=== PATIENT | male | born 1960 | race African-American/Black ===

== ENCOUNTER 2016-09-29 20:35 | Emergency (ER) | payer BC ==
[~2016-09-29] VITALS: Ht 175.3 cm; Wt 95.9 kg
[~2016-09-29 20:35] MED LIST: AMLOPIDINE PO; AMOXICILLIN 50500 MG PO; ANXIETY MED; ASPIRIN E.C. 8181 MG PO; ATARAX25 MG PO; AUGMENTIN 875 M1 TAB PO; BIAXIN 500MG T500 MG PO; CATAPRES-TTS 30.3 MG TD; CATAPRES0.2 MG PO; COREG 25MG25 MG/TAB PO; COZAAR100 MG PO; CYCLOBENZAPRINE10 MG PO; EPIPEN 2-PAK1 MG/ML IM; HCTZ 25MG TAB25 MG PO; HCTZ 25MG25 MG PO; HCTZ PO; HYDRALAZINE HCL25 MG PO; K-DUR20 MEQ PO; LASIX 40MG TABL40 MG; LASIX 40MG TABL40 MG PO; LASIX 80MG TABL80 MG PO; LEVEMIR SQ; LIPITOR 10MG10 MG PO; LISINOPRIL PO; LORTAB 5/500 501 TAB PO; LORTAB 7.5/5001 TAB PO; NORCO 325 MG-51 TAB PO; NORVASC 10MG10 MG PO; NOVLOG SQ; POTASSIUM CH2 MEQ/ML PO; POTASSIUM CL 220 MEQ PO; PREDNISONE20 MG PO; PROTONIX 40MG T40 MG PO; TERAZOSIN PO; TESSALON PERLE200 MG PO; ZYLOPRIM 300MG300 MG PO; [UNRECOGNIZED DRUG - REMARK]; [UNRECOGNIZED DRUG - REMARK]
[2016-09-29 20:38] VITALS: TEMP 98.1
[2016-09-29 21:39] LABS: BASO % 0.5 % (0.0-2.0); EOS # 0.2 (0.0-0.7); EOS % 2.7 % (0-4.0); GRAN # 2.9 (1.4-6.5); GRAN % 52.2 % (42.2-75.2); HEMATOCRIT 41.9 % (42.0-52.0); HEMOGLOBIN 14.9 g/dl (13.5-18.0); LYMPH # 1.8 (1.2-3.4); LYMPH % 32.9 % (20.0-51.0); MEAN CELL VOLUME 84 fl (80.0-100.0); MEAN CORPUSCULAR HEMOGLOBIN 30 pg (27.0-31.0); MEAN CORPUSCULAR HGB CONC 36 g/dl (33.0-37.0); MEAN PLATELET VOLUME 10.8 fl (7.4-10.4); MONO # 0.6 (0.1-0.6); MONO % 11.3 % (1.7-9.3); PLATELET COUNT 207 K/mm3 (130-400); RED BLOOD COUNT 5.01 M/mm3 (4.20-5.60); REDCELL DISTRIBUTION WIDTH-CV 11.9 % (11.5-14.5); WHITE BLOOD COUNT 5.5 K/mm3 (4.8-10.8)
[2016-09-29 21:46] LABS: PH 7 (5-8); SQUAMOUS EPITHELIAL 0-2 /hpf; URINE APPEARANCE Clear; URINE BACTERIA None Seen /hpf; URINE BILIRUBIN Negative (NEGATIVE); URINE BLOOD Negative (NEGATIVE); URINE COLOR Yellow; URINE GLUCOSE Negative (NEGATIVE); URINE KETONE Negative (NEGATIVE); URINE RBC 0-2 /hpf; URINE UROBILINOGEN Negative (NEGATIVE); URINE WBC 0-2 /hpf
[2016-09-29 21:52] LABS: ADJUSTED CALCIUM 8.6 mg/dL (8.4-10.2); ALANINE AMINOTRANSFERASE 91 U/L (21-72); ALBUMIN 3.8 gm/dL (3.5-5.0); ALKALINE PHOSPHATASE 76 U/L (50-136); ANION GAP 14 mmol/L (7-16); BILIRUBIN,TOTAL 0.8 mg/dL (0.0-1.0); BLOOD UREA NITROGEN 14 mg/dL (9-20); CALCIUM 8.4 mg/dL (8.4-10.2); CARBON DIOXIDE 31 mmol/L (22-30); CHLORIDE 96 mmol/L (98-107); CREATININE, serum 1.09 mg/dL (0.66-1.25); GLUCOSE 114 mg/dL (74-106); SODIUM 141 mmol/L (137-145); TOTAL PROTEIN 7.1 gm/dL (6.4-8.2)
[2016-09-29 21:55] LABS: C-REACTIVE PROTEIN < 0.5 mg/dL (0.0-0.9); POTASSIUM 2.7 mmol/L (3.4-5.0)
[2016-09-29] MEDS ORDERED: FLOMAX 0.40.4 MG/CAP PO (23:56)
[2016-09-30 00:25] VITALS: BP 159/108; PULSE 72
== END 2016-09-30 00:28 | disposition home or self-care (01) ==
LOC: COL.ER 20:35
PROVIDERS: Emergency Medicine
DX: I10 Essential (primary) hypertension (principal); R10.32 Left lower quadrant pain; N40.1 Benign prostatic hyperplasia with lower urinary tract symptoms; R39.11 Hesitancy of micturition; T46.5X6A Underdosing of other antihypertensive drugs, initial encounter; Z91.138 Patient's unintentional underdosing of medication regimen for other reason; E11.9 Type 2 diabetes mellitus without complications; Z79.4 Long term (current) use of insulin
CPT/HCPCS: J2765; J3010; J7030; Q9967

== ENCOUNTER → 2016-10-13 | Outpatient (CLI) | payer BC ==
[~2016-10-13] MED LIST changes: +FLOMAX 0.40.4 MG/CAP PO; +MAG-OX 400400 MG/TAB PO
== END ==
LOC: COL.RAD 11:00
DX: N50.812 Left testicular pain (principal)

== ENCOUNTER 2017-04-08 19:17 | Inpatient (IN) | payer BC, OTHER ==
[~2017-04-08] VITALS: Ht 175.3 cm; Wt 91.1 kg
[~2017-04-08 19:17] MED LIST changes: -MAG-OX 400400 MG/TAB PO
[2017-04-08 21:02] LABS: BASO % 0.3 % (0.0-2.0); EOS # 0.2 (0.0-0.7); EOS % 1.9 % (0-4.0); GRAN # 5.7 (1.4-6.5); GRAN % 59.5 % (42.2-75.2); LYMPH % 31.7 % (20.0-51.0); MEAN CELL VOLUME 84 fl (80.0-100.0); MEAN CORPUSCULAR HGB CONC 36 g/dl (33.0-37.0); MEAN PLATELET VOLUME 10.3 fl (7.4-10.4); MONO # 0.6 (0.1-0.6); MONO % 6.3 % (1.7-9.3); PLATELET COUNT 277 K/mm3 (130-400); RED BLOOD COUNT 6.29 M/mm3 (4.20-5.60); REDCELL DISTRIBUTION WIDTH-CV 12.1 % (11.5-14.5)
[2017-04-08 21:03] LABS: MEAN CORPUSCULAR HEMOGLOBIN 30 pg (27.0-31.0)
[2017-04-08 21:41] LABS: BILIRUBIN,TOTAL 0.9 mg/dL (0.0-1.0); CALCIUM 8.3 mg/dL (8.4-10.2); CREATININE, serum 1.19 mg/dL (0.66-1.25); TOTAL PROTEIN 7.2 gm/dL (6.4-8.2)
[2017-04-08 21:44] LABS: POTASSIUM 2.3 mmol/L (3.4-5.0)
[2017-04-08 21:52] LABS: TROPONIN-I 0.017 ng/mL (0.000-0.034)
[2017-04-09 00:56] LABS: MAGNESIUM 1.5 mg/dL (1.6-2.3); PHOSPHOROUS 3.6 mg/dL (2.5-4.5)
--- NOTE | 2017-04-09 01:25 | NUR ---
Pt arrived to floor from ED; c/o being extremely hungry; food provided. Denies itching or nausea. Alert/orientedx3; pt oriented to room. Fluids infusing to right ac. Call light within reach.
--- NOTE | 2017-04-09 01:56 | NUR ---
Report given to JASON Corona who will take over care for pt. Pt resting quietly at this time with no complaints. Fluids infusing to right ac. Tele on. Call light within reach.
[2017-04-09 02:29] VITALS: BP 180/112; PULSE 103; TEMP 98.1
[2017-04-09 04:45] VITALS: BP 149/96; PULSE 85; TEMP 97.7
--- NOTE | 2017-04-09 06:15 | NUR ---
Patient has been sleeping/resting well through the night, vital signs have been stable, he has been hypertensive but asymptomatic, he has denied having any additional concerns, currently he is resting calmly in bed, call light is in reach, will continue to monitor.
[2017-04-09 06:52] LABS: HEMATOCRIT 42.1 % (42.0-52.0); MEAN CELL VOLUME 85 fl (80.0-100.0); MEAN CORPUSCULAR HEMOGLOBIN 30 pg (27.0-31.0); MEAN CORPUSCULAR HGB CONC 35 g/dl (33.0-37.0); MEAN PLATELET VOLUME 10.8 fl (7.4-10.4); PLATELET COUNT 227 K/mm3 (130-400); RED BLOOD COUNT 4.94 M/mm3 (4.20-5.60); REDCELL DISTRIBUTION WIDTH-CV 12.2 % (11.5-14.5)
[2017-04-09 06:55] LABS: HEMOGLOBIN 14.9 g/dl (13.5-18.0)
[2017-04-09 07:09] LABS: CALCIUM 7.8 mg/dL (8.4-10.2); CREATININE, serum 1.02 mg/dL (0.66-1.25); POTASSIUM 3.6 mmol/L (3.4-5.0)
[2017-04-09 08:07] VITALS: BP 155/94; PULSE 85; TEMP 97.9
--- NOTE | 2017-04-09 09:30 | NUR ---
Patient sleeping when arrived to the room. Patient awakens when spoken loudly to by this nurse. Verbalizes achiness/stiffness in hamd joints. Questioned about medication compliance at home. He does not answer. Patient took AM medicaitons without difficulty. No other needs at this time
[2017-04-09 11:35] VITALS: BP 154/94; PULSE 78; TEMP 97.8
[2017-04-09 15:15] VITALS: BP 135/91; PULSE 80; TEMP 97.9
--- NOTE | 2017-04-09 15:35 | NUR ---
SW and SW student met with patient to review discharge plan. Patient appeared agitated and anxious to return home. Patient reports independence with ADLs and uses no DME. Patient to return home upon discharge. No anticipated needs.
--- NOTE | 2017-04-09 15:43 | NUR ---
Called to patients room. Patient states that he doesnt understand why he hasnt been discharged to home yet. "That doctor last night told me I only had to stay one day to get my electrolytes fixed" Explained to patient that Dr. Gonzalez was going to keep him for another day. Patient is not understanding of this. When explained to patient that Dr. Gonzalez is very concerned about his home medications and if he takes them as ordered. Such as insulin. Patient states "I dont need that stuff. They tried to send me home with it last time and I know im not diabetic. I just eat a lot of candy." Patient then c/o right hand swelling. Explained to patient since his IV was in that arm it could cause swelling in his hand. Offered to change IV site for patient. Patient states "I want another nurse" JASON Lopez, charge nurse made aware
[2017-04-09] MEDS ORDERED: MAG-OX 400400 MG/TAB PO (16:07)
--- NOTE | 2017-04-09 16:14 | NUR ---
Jessica RN went to see patient. Offered to restart IV and give something for pain. Patient is c/o pain to Jessica in his right neck area. Patient told her that it could be muscular but also may be heart burn. While other nurse was addressing pain medication; the patient called this nurse back to room. Patient wants to know where that paper that he needed to sign is; so he can go home (AMA). Jessica took down Tyenol and Maalox to patient. Patient refused both medications and PM Heparin. Dr. Gonzalez came back to see patient. Patient will be discharged to home.
--- NOTE | 2017-04-09 17:35 | NUR ---
Discharge instructions reviewed with patient. Reviewed home medications. Explained to patient that he needed to be sure to take his home medications. Also reviewed with patient if he does not have home blood pressure medications than to call the floor and we would get scripts sent to his pharmacy. Patient reports that he is understanding. Gave patient follow up appointment information; education; lab draws needed and home medications. INT discontinued and patient discharged at this time. No further questions
[2017-12-16] MEDS ORDERED: ZYLOPRIM 300MG300 MG PO (21:55)
[2017-12-16] MEDS ORDERED: NAPROSYN500 MG PO (21:56)
[2017-12-16] MEDS ORDERED: TOPROL XL 50MG50 MG PO (21:56)
[2017-12-19] MEDS ORDERED: ASPIRIN 32325 MG/TAB PO (11:35)
[2017-12-19] MEDS ORDERED: NORVASC 10MG10 MG PO (11:35)
[2017-12-19] MEDS ORDERED: TOPROL XL100 MG PO (11:35)
[2017-12-19] MEDS ORDERED: ANTIVERT 25MG25 MG PO (11:36)
[2017-12-19] MEDS ORDERED: HCTZ12.5TAB PO (11:36)
[2017-12-19] MEDS ORDERED: ZOFRAN 4MG T4 MG/TAB PO (11:36)
[2017-12-19] MEDS ORDERED: K-TAB20 PO ×2 (11:40)
[2019-03-22] MEDS ORDERED: MOBIC15 MG PO (18:45)
== END 2017-04-09 17:35 | disposition home or self-care (01) | DRG 305 ==
LOC: COL.ER 19:17 → MEDICAL 04-09 00:26
PROVIDERS: Emergency Medicine
DX: I10 Essential (primary) hypertension (principal); Z91.14 Patient's other noncompliance with medication regimen; E87.6 Hypokalemia; D75.1 Secondary polycythemia; F17.210 Nicotine dependence, cigarettes, uncomplicated; E83.42 Hypomagnesemia; R11.2 Nausea with vomiting, unspecified; R73.9 Hyperglycemia, unspecified; Z86.73 Personal history of transient ischemic attack (TIA), and cerebral infarction without residual deficits
CPT/HCPCS: 99223-AI; J1644; J1815; J2405; J3475; J3480; J7030; J7512

== ENCOUNTER 2018-04-26 08:15 | Emergency (ER) | payer OTHER ==
[~2018-04-26] VITALS: Ht 175.3 cm; Wt 94.1 kg
[~2018-04-26 08:15] MED LIST changes: +ANTIVERT 25MG25 MG PO; +ASPIRIN 32325 MG/TAB PO; +HCTZ12.5TAB PO; +K-TAB20 PO; +MAG-OX 400400 MG/TAB PO; +NAPROSYN500 MG PO; +TOPROL XL 50MG50 MG PO; +TOPROL XL100 MG PO; +ZOFRAN 4MG T4 MG/TAB PO
[2018-04-26] MEDS ORDERED: TOPROL XL100 MG PO ×2 (08:35)
[2018-04-26] MEDS ORDERED: HCTZ12.5TAB PO (08:35)
[2018-04-26] MEDS ORDERED: NORVASC 10MG10 MG PO (08:35)
[2018-04-26] MEDS ORDERED: AMOXICILLIN 50500 MG PO ×2 (08:35)
[2018-04-26] MEDS ORDERED: ZYRTEC 10MG10 MG PO (08:36)
[2018-04-26 09:12] VITALS: BP 181/118; PULSE 82; TEMP 98.6
== END 2018-04-26 09:12 | disposition home or self-care (01) ==
LOC: COL.ER 08:15
DX: J02.9 Acute pharyngitis, unspecified (principal); H66.92 Otitis media, unspecified, left ear; I10 Essential (primary) hypertension; Z79.82 Long term (current) use of aspirin; Z86.73 Personal history of transient ischemic attack (TIA), and cerebral infarction without residual deficits

== ENCOUNTER 2018-04-27 11:23 | Observation (INO) | payer OTHER ==
[~2018-04-27] VITALS: Ht 175.3 cm; Wt 86.8 kg
[~2018-04-27 11:23] MED LIST changes: +ZYRTEC 10MG10 MG PO
[2018-04-27 12:08] LABS: BASO # 0.1 (0.0-0.2); BASO % 0.6 % (0.0-2.0); EOS # 0.2 (0.0-0.7); EOS % 1.8 % (0-4.0); GRAN # 5.1 (1.4-6.5); GRAN % 62.3 % (42.2-75.2); HEMATOCRIT 44.2 % (42.0-52.0); HEMOGLOBIN 15.3 g/dl (13.5-18.0); LYMPH # 1.9 (1.2-3.4); LYMPH % 23.3 % (20.0-51.0); MEAN CELL VOLUME 86 fl (80.0-100.0); MEAN CORPUSCULAR HEMOGLOBIN 30 pg (27.0-31.0); MEAN CORPUSCULAR HGB CONC 35 g/dl (33.0-37.0); MEAN PLATELET VOLUME 10.5 fl (7.4-10.4); MONO % 11.5 % (1.7-9.3); PLATELET COUNT 198 K/mm3 (130-400); RED BLOOD COUNT 5.14 M/mm3 (4.20-5.60); REDCELL DISTRIBUTION WIDTH-CV 11.4 % (11.5-14.5)
[2018-04-27 12:16] LABS: PARTIAL THROMBOPLASTIN TIME 33.5 SECONDS (26.0-37.0)
[2018-04-27 12:17] LABS: INR 1.2 (0.8-3.0); PROTHROMBIN TIME 13.5 SECONDS (9.7-12.8)
[2018-04-27 12:47] LABS: ALBUMIN 3.9 gm/dL (3.5-5.0); C-REACTIVE PROTEIN 1.7 mg/dL (0.0-0.9); CALCIUM 8.5 mg/dL (8.4-10.2); CREATININE, serum 1.53 mg/dL (0.66-1.25); TOTAL PROTEIN 7.4 gm/dL (6.4-8.2)
[2018-04-27 12:48] LABS: POTASSIUM 2.5 mmol/L (3.4-5.0)
[2018-04-27 15:46] VITALS: BP 154/111; PULSE 79; TEMP 99.1
[2018-04-27 15:56] LABS: MAGNESIUM 1.4 mg/dL (1.6-2.3)
[2018-04-27 16:02] LABS: TROPONIN-I 3 HR POST INITIAL 0.068 ng/mL (0.000-0.034)
[2018-04-27 17:36] VITALS: BP 139/93
[2018-04-27 19:26] VITALS: BP 141/93; PULSE 73; TEMP 98.5
[2018-04-27 20:27] VITALS: BP 143/93; PULSE 73; TEMP 98
[2018-04-28] VITALS (10 sets, daily range): BP systolic 144–172; BP diastolic 52–112; PULSE 71–89; TEMP 98.2–98.6
[2018-04-28 08:03] LABS: CALCIUM 8.3 mg/dL (8.4-10.2); CHOLESTEROL RISK RATIO 3.7; CREATININE, serum 1.03 mg/dL (0.66-1.25)
[2018-04-28 08:10] LABS: POTASSIUM 2.6 mmol/L (3.4-5.0)
[2018-04-28 08:32] LABS: TROPONIN-I 0.048 ng/mL (0.000-0.034)
[2018-04-28] MEDS ORDERED: MAG-OX 400400 MG/TAB PO (16:11)
[2018-04-28] MEDS ORDERED: TOPROL XL100 MG PO (16:11)
[2018-04-28] MEDS ORDERED: K-TAB20 PO (16:12)
[2018-04-28] MEDS ORDERED: LIPITOR20 MG PO (16:13)
== END 2018-04-28 18:15 | disposition home or self-care (01) ==
LOC: COL.ER 11:23 → MEDICAL 13:30
PROVIDERS: Physician Assistant
DX: R07.89 Other chest pain (principal); N17.9 Acute kidney failure, unspecified; I10 Essential (primary) hypertension; N40.0 Benign prostatic hyperplasia without lower urinary tract symptoms; E87.6 Hypokalemia; M10.9 Gout, unspecified; K29.70 Gastritis, unspecified, without bleeding; I25.2 Old myocardial infarction; E78.00 Pure hypercholesterolemia, unspecified; Z79.82 Long term (current) use of aspirin; E78.5 Hyperlipidemia, unspecified; Z86.73 Personal history of transient ischemic attack (TIA), and cerebral infarction without residual deficits; Z90.49 Acquired absence of other specified parts of digestive tract; Z91.018 Allergy to other foods
CPT/HCPCS: A9502; G0378; J1644; J3475; J3480; J7030

== ENCOUNTER 2018-05-02 09:51 | Emergency (ER) | payer OTHER ==
[~2018-05-02] VITALS: Ht 175.3 cm; Wt 96.4 kg
[~2018-05-02 09:51] MED LIST changes: +LIPITOR20 MG PO
[2018-05-02 09:52] VITALS: TEMP 97.9
[2018-05-02 10:30] LABS: BASO % 0.8 % (0.0-2.0); EOS # 0.2 (0.0-0.7); EOS % 4.3 % (0-4.0); GRAN # 2.4 (1.4-6.5); GRAN % 45.7 % (42.2-75.2); HEMOGLOBIN 15.5 g/dl (13.5-18.0); LYMPH % 39.3 % (20.0-51.0); MEAN CELL VOLUME 86 fl (80.0-100.0); MEAN CORPUSCULAR HEMOGLOBIN 30 pg (27.0-31.0); MEAN CORPUSCULAR HGB CONC 35 g/dl (33.0-37.0); MEAN PLATELET VOLUME 10.5 fl (7.4-10.4); MONO # 0.5 (0.1-0.6); MONO % 9.5 % (1.7-9.3); PLATELET COUNT 285 K/mm3 (130-400); RED BLOOD COUNT 5.14 M/mm3 (4.20-5.60); REDCELL DISTRIBUTION WIDTH-CV 11.2 % (11.5-14.5)
[2018-05-02 10:34] LABS: ALBUMIN 3.8 gm/dL (3.5-5.0); BILIRUBIN,TOTAL 0.4 mg/dL (0.0-1.0); CALCIUM 8.8 mg/dL (8.4-10.2); CREATININE, serum 1.22 mg/dL (0.66-1.25); POTASSIUM 3.4 mmol/L (3.4-5.0); TOTAL PROTEIN 7.7 gm/dL (6.4-8.2)
[2018-05-02 10:46] LABS: TROPONIN-I 0.034 ng/mL (0.000-0.034)
[2018-05-02 11:41] VITALS: BP 181/112; PULSE 66
== END 2018-05-02 11:41 | disposition home or self-care (01) ==
LOC: COL.ER 09:51
PROVIDERS: Emergency Medicine
DX: I10 Essential (primary) hypertension (principal); E78.5 Hyperlipidemia, unspecified; E87.6 Hypokalemia; Z86.73 Personal history of transient ischemic attack (TIA), and cerebral infarction without residual deficits; Z87.448 Personal history of other diseases of urinary system; Z79.82 Long term (current) use of aspirin

== ENCOUNTER 2018-06-27 09:01 | Emergency (ER) | payer OTHER ==
[~2018-06-27] VITALS: Ht 175.3 cm; Wt 93.2 kg
[2018-06-27 09:05] VITALS: TEMP 98
[2018-06-27 09:24] LABS: BASO % 0.8 % (0.0-2.0); EOS # 0.1 (0.0-0.7); EOS % 2.5 % (0-4.0); GRAN # 2.6 (1.4-6.5); GRAN % 49.5 % (42.2-75.2); HEMATOCRIT 41.3 % (42.0-52.0); HEMOGLOBIN 14.1 g/dl (13.5-18.0); LYMPH # 1.9 (1.2-3.4); LYMPH % 37.7 % (20.0-51.0); MEAN CELL VOLUME 85 fl (80.0-100.0); MEAN CORPUSCULAR HEMOGLOBIN 29 pg (27.0-31.0); MEAN CORPUSCULAR HGB CONC 34 g/dl (33.0-37.0); MEAN PLATELET VOLUME 9.8 fl (7.4-10.4); MONO # 0.5 (0.1-0.6); MONO % 9.1 % (1.7-9.3); PLATELET COUNT 260 K/mm3 (130-400); RED BLOOD COUNT 4.87 M/mm3 (4.20-5.60)
[2018-06-27 09:33] LABS: ALBUMIN 3.5 gm/dL (3.5-5.0); BILIRUBIN,TOTAL 0.5 mg/dL (0.0-1.0); CALCIUM 8.7 mg/dL (8.4-10.2); CREATININE, serum 0.95 mg/dL (0.66-1.25); TOTAL PROTEIN 6.9 gm/dL (6.4-8.2)
[2018-06-27 09:42] LABS: POTASSIUM 2.8 mmol/L (3.4-5.0)
[2018-06-27 09:46] LABS: TROPONIN-I 0.04 ng/mL (0.000-0.034)
[2018-06-27 10:35] LABS: COLLECTION METHOD CLEAN CATCH
[2018-06-27 10:46] LABS: MUCOUS Present /lpf; PH 7 (5-8); SQUAMOUS EPITHELIAL None Seen /hpf; URINE APPEARANCE Clear; URINE BACTERIA None Seen /hpf; URINE BILIRUBIN Negative (NEGATIVE); URINE BLOOD Negative (NEGATIVE); URINE COLOR Yellow; URINE GLUCOSE Negative (NEGATIVE); URINE KETONE Negative (NEGATIVE); URINE LEUKOCYTE ESTERASE Negative (NEGATIVE); URINE NITRATE Negative (NEGATIVE); URINE PROTEIN(semi-quant) 2+ (NEGATIVE); URINE RBC 0-2 /hpf; URINE UROBILINOGEN Negative (NEGATIVE); URINE WBC 0-2 /hpf
[2018-06-27] MEDS ORDERED: FLOMAX 0.40.4 MG/CAP PO (13:30)
[2018-06-27] MEDS ORDERED: HCTZ12.5TAB PO (13:30)
[2018-06-27] MEDS ORDERED: K-DUR20 MEQ PO (13:30)
[2018-06-27] MEDS ORDERED: LIPITOR20 MG PO (13:30)
[2018-06-27] MEDS ORDERED: NORVASC 10MG10 MG PO (13:30)
[2018-06-27] MEDS ORDERED: TOPROL XL100 MG PO (13:30)
[2018-06-27 13:40] VITALS: BP 178/111; PULSE 66
== END 2018-06-27 13:44 | disposition home or self-care (01) ==
LOC: COL.ER 09:01
PROVIDERS: Emergency Medicine
DX: I10 Essential (primary) hypertension (principal); R79.89 Other specified abnormal findings of blood chemistry; E78.5 Hyperlipidemia, unspecified; E87.6 Hypokalemia; M10.9 Gout, unspecified; Z87.891 Personal history of nicotine dependence; Z90.49 Acquired absence of other specified parts of digestive tract; Z86.73 Personal history of transient ischemic attack (TIA), and cerebral infarction without residual deficits
CPT/HCPCS: J3480

== ENCOUNTER → 2019-05-04 | Outpatient (CLI) | payer SELFPAY ==
[~2019-05-04] MED LIST changes: +MOBIC15 MG PO
[2019-05-04 16:58] LABS: HEMATOCRIT 39.6 % (42.0-52.0); HEMOGLOBIN 13.4 g/dl (13.5-18.0); MEAN CELL VOLUME 85 fl (80.0-100.0); MEAN CORPUSCULAR HEMOGLOBIN 29 pg (27.0-31.0); MEAN CORPUSCULAR HGB CONC 34 g/dl (33.0-37.0); MEAN PLATELET VOLUME 9.4 fl (7.4-10.4); PLATELET COUNT 313 K/mm3 (130-400); RED BLOOD COUNT 4.65 M/mm3 (4.20-5.60); REDCELL DISTRIBUTION WIDTH-CV 12.1 % (11.5-14.5)
[2019-05-04 17:07] LABS: ALBUMIN 4.2 gm/dL (3.5-5.0); BILIRUBIN,TOTAL 0.4 mg/dL (0.0-1.0); CHOLESTEROL RISK RATIO 4.4; CREATININE, serum 1.27 (0.66-1.25); POTASSIUM 3.1 mmol/L (3.4-5.0); TOTAL PROTEIN 7.8 gm/dL (6.4-8.2)
== END ==
LOC: COL.RAD 15:59 → COL.LAB 15:59
PROVIDERS: Family Medicine
DX: Z01.812 Encounter for preprocedural laboratory examination (principal); R05 Cough

== ENCOUNTER → 2019-06-23 | Outpatient (CLI) | payer OTHER | LOC: COL.PUL 08:00 → COL.RAD 08:20 | DX: Z02.71 Encounter for disability determination (principal); M47.816 Spondylosis without myelopathy or radiculopathy, lumbar region; M25.551 Pain in right hip; M16.11 Unilateral primary osteoarthritis, right hip ==

== ENCOUNTER → 2019-08-24 | Outpatient (CLI) | payer OTHER | LOC: ZLAB.FHCC 15:54 | DX: Z01.89 Encounter for other specified special examinations (principal) ==

== ENCOUNTER → 2019-09-27 | Outpatient (CLI) | payer SELFPAY ==
[2019-09-27 10:01] LABS: COLLECTION METHOD CLEAN CATCH
[2019-09-27 10:09] LABS: HEMATOCRIT 44.6 % (42.0-52.0); HEMOGLOBIN 14.5 g/dl (13.5-18.0); MEAN CELL VOLUME 88 fl (80.0-100.0); MEAN CORPUSCULAR HEMOGLOBIN 29 pg (27.0-31.0); MEAN CORPUSCULAR HGB CONC 33 g/dl (33.0-37.0); MEAN PLATELET VOLUME 10.1 fl (7.4-10.4); PLATELET COUNT 242 K/mm3 (130-400); RED BLOOD COUNT 5.05 M/mm3 (4.20-5.60); REDCELL DISTRIBUTION WIDTH-CV 12.8 % (11.5-14.5)
[2019-09-27 10:11] LABS: PH 6 (5-8); SQUAMOUS EPITHELIAL 0-2 /hpf; URINE APPEARANCE Clear; URINE BACTERIA None Seen /hpf; URINE BILIRUBIN Negative (NEGATIVE); URINE BLOOD Negative (NEGATIVE); URINE COLOR Yellow; URINE GLUCOSE Negative (NEGATIVE); URINE KETONE Negative (NEGATIVE); URINE LEUKOCYTE ESTERASE Negative (NEGATIVE); URINE NITRATE Negative (NEGATIVE); URINE PROTEIN(semi-quant) 2+ (NEGATIVE); URINE RBC 0-2 /hpf; URINE UROBILINOGEN Negative (NEGATIVE); URINE WBC 0-2 /hpf
== END ==
LOC: COL.LAB 09:09
DX: M19.041 Primary osteoarthritis, right hand (principal)

== ENCOUNTER 2019-10-12 12:42 | Emergency (ER) | payer SELFPAY ==
[~2019-10-12] VITALS: Ht 175.3 cm; Wt 79.5 kg
[2019-10-12 13:06] VITALS: TEMP 98.3
[2019-10-12] MEDS ORDERED: CEPHALEXIN500 M1 PO (13:48)
[2019-10-12 14:35] VITALS: PULSE 56
[2019-10-12 15:01] VITALS: BP 171/109
== END 2019-10-12 15:02 | disposition home or self-care (01) ==
LOC: COL.ER 12:42
DX: T23.201A Burn of second degree of right hand, unspecified site, initial encounter (principal); T31.0 Burns involving less than 10% of body surface; I10 Essential (primary) hypertension; Z79.82 Long term (current) use of aspirin; Z23 Encounter for immunization; X10.2XXA Contact with fats and cooking oils, initial encounter

== ENCOUNTER → 2019-10-26 | Outpatient (CLI) | payer SELFPAY ==
[~2019-10-26] MED LIST changes: +CEPHALEXIN500 M1 PO
[2019-10-26 17:55] LABS: ALBUMIN 3.6 gm/dL (3.5-5.0); BILIRUBIN,TOTAL 0.5 mg/dL (0.0-1.0); C-REACTIVE PROTEIN 1.6 mg/dL (0.0-0.9); CALCIUM 8.5 mg/dL (8.4-10.2); CREATININE, serum 1.61 (0.66-1.25); POTASSIUM 3.2 mmol/L (3.4-5.0); TOTAL PROTEIN 6.8 gm/dL (6.4-8.2)
[2019-10-26 18:23] LABS: THYROID STIMULATING HORMONE 1.45 uIU/mL (0.465-4.680)
== END ==
LOC: ZLAB.FHCC 17:04
DX: Z01.89 Encounter for other specified special examinations (principal)

== ENCOUNTER → 2019-11-24 | Outpatient (CLI) | payer SELFPAY | LOC: COL.LAB 11:36 | DX: B19.20 Unspecified viral hepatitis C without hepatic coma (principal) ==

== ENCOUNTER 2019-12-27 19:48 | Inpatient (IN) | payer SELFPAY ==
[~2019-12-27] VITALS: Ht 175.3 cm; Wt 84.2 kg
[2019-12-27 20:50] LABS: BASO % 0.3 % (0.0-2.0); EOS # 0.2 (0.0-0.7); EOS % 2.7 % (0-4.0); GRAN % 59.1 % (42.2-75.2); HEMATOCRIT 39.3 % (42.0-52.0); HEMOGLOBIN 13.1 g/dl (13.5-18.0); LYMPH # 1.9 (1.2-3.4); LYMPH % 27.9 % (20.0-51.0); MEAN CELL VOLUME 86 fl (80.0-100.0); MEAN CORPUSCULAR HEMOGLOBIN 29 pg (27.0-31.0); MEAN CORPUSCULAR HGB CONC 33 g/dl (33.0-37.0); MEAN PLATELET VOLUME 10.1 fl (7.4-10.4); MONO # 0.7 (0.1-0.6); MONO % 9.7 % (1.7-9.3); PLATELET COUNT 246 K/mm3 (130-400); RED BLOOD COUNT 4.59 M/mm3 (4.20-5.60); REDCELL DISTRIBUTION WIDTH-CV 12.3 % (11.5-14.5)
[2019-12-27 20:52] LABS: INR 1.2 (0.8-3.0); PROTHROMBIN TIME 13.4 SECONDS (9.7-12.8)
[2019-12-27 20:55] LABS: ALBUMIN 3.5 gm/dL (3.5-5.0); BILIRUBIN,TOTAL 0.5 mg/dL (0.0-1.0); CALCIUM 8.1 mg/dL (8.4-10.2); CREATININE, serum 1.14 (0.66-1.25); MAGNESIUM 1.8 mg/dL (1.6-2.3); PARTIAL THROMBOPLASTIN TIME 35.3 SECONDS (26.0-37.0); TOTAL PROTEIN 6.9 gm/dL (6.4-8.2)
[2019-12-27 21:06] LABS: TROPONIN-I 0.015 ng/mL (0.000-0.035)
[2019-12-27 21:29] LABS: COLLECTION METHOD CLEAN CATCH
[2019-12-27 21:40] LABS: AMORPHOUS CRYSTAL Present /uL; BUDDING YEAST Present /hpf; PH 7 (5-8); SQUAMOUS EPITHELIAL None Seen /hpf; URINE APPEARANCE Hazy; URINE BACTERIA Moderate /hpf; URINE BILIRUBIN Negative (NEGATIVE); URINE BLOOD Negative (NEGATIVE); URINE COLOR Yellow; URINE GLUCOSE Negative (NEGATIVE); URINE KETONE Negative (NEGATIVE); URINE LEUKOCYTE ESTERASE 2+ (NEGATIVE); URINE NITRATE Negative (NEGATIVE); URINE PROTEIN(semi-quant) 1+ (NEGATIVE); URINE RBC 0-2 /hpf
[2019-12-28] VITALS (776 sets, daily range): BP systolic 138–185; BP diastolic 73–102; PULSE 65–88; TEMP 97–99.7; O2SAT 83–100
--- NOTE | 2019-12-28 01:55 | NUR ---
Called regarding positive result of gonnohrea. He gave a verbal phone order for 1 more gram of rocephin IV to be given.
--- NOTE | 2019-12-28 07:00 | NUR ---
Report recieved from Josue GOMEZ. Medications and lines verified, patient in bed with eyes closed and snoring respirations. Call light at side.
[2019-12-28 08:05] LABS: BILIRUBIN,TOTAL 0.5 mg/dL (0.0-1.0); CALCIUM 8.6 mg/dL (8.4-10.2); CREATININE, serum 1.04 (0.66-1.25); MAGNESIUM 1.7 mg/dL (1.6-2.3); TOTAL PROTEIN 7.9 gm/dL (6.4-8.2)
[2019-12-28 08:22] LABS: BASO % 0.2 % (0.0-2.0); EOS # 0.1 (0.0-0.7); EOS % 1.3 % (0-4.0); GRAN # 7.6 (1.4-6.5); GRAN % 77.4 % (42.2-75.2); HEMATOCRIT 44.4 % (42.0-52.0); HEMOGLOBIN 14.8 g/dl (13.5-18.0); LYMPH # 1.4 (1.2-3.4); MEAN CELL VOLUME 86 fl (80.0-100.0); MEAN CORPUSCULAR HEMOGLOBIN 29 pg (27.0-31.0); MEAN CORPUSCULAR HGB CONC 33 g/dl (33.0-37.0); MONO # 0.7 (0.1-0.6); MONO % 6.8 % (1.7-9.3); PLATELET COUNT 238 K/mm3 (130-400); RED BLOOD COUNT 5.18 M/mm3 (4.20-5.60); REDCELL DISTRIBUTION WIDTH-CV 12.3 % (11.5-14.5)
--- NOTE | 2019-12-28 10:26 | NUR ---
SW met with the patient to discuss discharge plan. The patient lives in [place] with his daughter, Juana (ph#[phone]). He reports needing occasional assistance with ADLs and has a cane. He states that if he needs assistance getting to the restroom or bathing, then he uses his cane. The patient receives primary care at the [facility] and he receives his medications at [facility]. He reports difficulties affording his meds. He states that he has utilized [employer] for prescription assistance. SW also discussed GoodRx. The patient verbalized understanding and reports that he has heard of this. The patient is self pay. SW consulted Financial Counselor, Dequan. The patient does not have advanced directives completed and he was not interested in completing them at this time. He states that he has three children: Juana, Jennifer (ph#[phone]), and Jakub. The patient plans to return home with his daughter upon discharge. SW to continue to follow for possible med assistance.
--- NOTE | 2019-12-28 15:16 | NUR ---
report called to Joan GOMEZ.
--- NOTE | 2019-12-28 18:31 | NUR ---
Patient transferred from ICU to floor at 1530. Is alert and independent. Lungs clear, heart is regular, abdomen is soft and nontender with bowel sounds active x4. No edema is noted. Is denying pain, states feeling a little chilly. Heater turned up for patient. Call light and personal items are within reach.
--- NOTE | 2019-12-28 18:45 | NUR ---
Report given to oncoming shift. No needs identified. Call light and personal items are within reach.
--- NOTE | 2019-12-28 19:00 | NUR ---
Received patient from [facility]. Seen patient awake, lying on bed. Denies any pain. With INT on left AC. Will continueto monitor.
--- NOTE | 2019-12-28 21:39 | NUR ---
Patient complains of pain on his shoulders with pain score of 6/10. He said he has arthritis. Blood pressure rechecked and still high, 178/99. This nurse called Dr. Mahmood and he ordered [place] tablet PRN. Will recheck blood pressure again once pain has lessen.
[2019-12-29] VITALS (10 sets, daily range): BP systolic 158–191; BP diastolic 78–109; PULSE 67–97; TEMP 98.2–99.3
--- NOTE | 2019-12-29 00:10 | NUR ---
Last dose of potassium replacement given. This nurse asked patient of his pain on the shoulders and said that it was 4/10 and it was much better already.
--- NOTE | 2019-12-29 00:40 | NUR ---
Patient called saying he has pain again on his shoulder and pain score is 6/10. He is asking for pain medicine. Navarre is not due yet but he has Morphine. When this nurse is about to give the Morphine he refuses saying he likes Navarre because that's what he takes at home. This nurse informed him that he's not due yet and next dose would be at around 3:30am. He agreed to wait for the Navarre later.
--- NOTE | 2019-12-29 04:08 | NUR ---
Patient complains of shoulder pain, 03/18. Troy PRN given. Blood pressure is high as well. Hydralazine PRN given. Will recheck blood pressure after an hour.
--- NOTE | 2019-12-29 06:32 | NUR ---
Blood pressure was rechecked. Latest BP is 161/98. Patient still with complains of mild pain on his shoulder. Will endorse to day shift nurse.
[2019-12-29 07:35] LABS: CALCIUM 8.3 mg/dL (8.4-10.2); CREATININE, serum 0.91 (0.66-1.25); MAGNESIUM 1.7 mg/dL (1.6-2.3); POTASSIUM 3.2 mmol/L (3.4-5.0)
--- NOTE | 2019-12-29 08:00 | NUR ---
PATIENT IS ORIENTED BUT DROWSY. PATIENT HAS A VERY FLAT AFFECT AND RARLY SPEAKS. PATIENT WILL ANSWER WHEN DIRECTLY ASKED A QUESTION. NOTED ELEVATED B/P. PATIENT GIVEN SEVERAL MEDICATIONS FOR B/P. PATIENT CURRENTLY REPORTS PAIN IS MANAGED WITH NORCO. PATIENT CURRENTLY DENIES CHEST PAIN OR SOA. HEAD TO TOE ASSESSMENT COMPLETE. PATIENT ON POTASSIUM PROTOCOL, SEE REPLACEMENT ORDERS. NO C/O N/V. AHA DIET. AM MEDS GIVEN. NO OTHER NEEDS.
--- NOTE | 2019-12-29 12:00 | NUR ---
PATIENT GIVEN ORAL POTASSIUM DRINK. PATIENT STILL RESTING IN ROOM WITH NO OTHER NEEDS.
--- NOTE | 2019-12-29 16:14 | NUR ---
Etl Architect checked in with patient. Patient advised that if he is prescribed new medications, he may need assistance with paying for them depending on the cost. SW collaborated with OSCAR Cazares who advised patient will likely discharge tomorrow. SW to continue to follow.
--- NOTE | 2019-12-29 19:45 | NUR ---
Received report from Annalisa. Seen patient awake, lying in bed. Patient denies any severe pain in the shoulder. With INT on the left AC. Will monitor blood pressure closely.
[2019-12-30 04:13] VITALS: BP 166/93; PULSE 75; TEMP 98.9
[2019-12-30 05:27] VITALS: BP 134/71
--- NOTE | 2019-12-30 06:22 | NUR ---
Patient had an uneventful night. Latest blood pressure is 134/71. Still with complains of shoulder pain but relieved with [place]. Will endorse to day shift nurse.
[2019-12-30 07:56] LABS: BASO % 0.2 % (0.0-2.0); EOS # 0.2 (0.0-0.7); EOS % 2.9 % (0-4.0); GRAN # 3.6 (1.4-6.5); GRAN % 63.2 % (42.2-75.2); HEMOGLOBIN 13.4 g/dl (13.5-18.0); LYMPH # 1.5 (1.2-3.4); LYMPH % 26.2 % (20.0-51.0); MEAN CELL VOLUME 86 fl (80.0-100.0); MEAN CORPUSCULAR HEMOGLOBIN 29 pg (27.0-31.0); MEAN CORPUSCULAR HGB CONC 34 g/dl (33.0-37.0); MEAN PLATELET VOLUME 10.2 fl (7.4-10.4); MONO # 0.4 (0.1-0.6); MONO % 7.1 % (1.7-9.3); PLATELET COUNT 258 K/mm3 (130-400); RED BLOOD COUNT 4.68 M/mm3 (4.20-5.60); REDCELL DISTRIBUTION WIDTH-CV 12.3 % (11.5-14.5)
[2019-12-30 08:03] LABS: CALCIUM 8.4 mg/dL (8.4-10.2); CREATININE, serum 0.96 (0.66-1.25); MAGNESIUM 1.9 mg/dL (1.6-2.3); POTASSIUM 3.2 mmol/L (3.4-5.0)
[2019-12-30 08:07] VITALS: BP 161/83; PULSE 74; TEMP 98.2
[2019-12-30 09:05] VITALS: BP 160/82
[2019-12-30] MEDS ORDERED: COREG 25MG25 MG/TAB PO (09:41)
[2019-12-30] MEDS ORDERED: CARDIZEM CD 18180 MG PO (09:42)
[2019-12-30] MEDS ORDERED: ALDACTONE 25MG25 M1 PO (09:42)
[2019-12-30] MEDS ORDERED: K-TAB20 PO (09:44)
[2019-12-30] MEDS ORDERED: MAG-OX 400400 MG/TAB PO (09:44)
[2019-12-30] MEDS ORDERED: HCTZ12.5TAB PO (09:44)
--- NOTE | 2019-12-30 13:45 | NUR ---
No complaints. Blood pressure stable. trail construction worker met with patient. Dismissed to home per cab.
--- NOTE | 2019-12-30 16:01 | NUR ---
Sw received call from Patients nurse that patient was ready for discharge, however needed a voucher for medications. SW corresponded wiht patient, and then contacted [facility] for prices. SW faxed over information to [employer], and confirmed that fax was received, while coordinating withcharge nurse for discharge. SW explained process to patient, and provided charge nurse with nedded forms to present during discharge. Patients nurse then called SW and informed her that patient needed transsportation home. SW contacted [facility] to arrange for transport, and provided voucher to patient with instructions.
--- NOTE | 2020-01-02 16:36 | NUR ---
Desirae RN, informed BLAYNE that had contacted the patient for a discharge follow up and that he informed her that he does not have transport to his appointment on . SW attempted to contact the patient. The number was disconnected. BLAYNE then contacted the patient's daughter, Juana. Juana reports that she just got off of work and is not around the patient. She states that she and the patient utilize the [employer] bus for transport. She provided BLAYNE with the patient's cell phone number (#[phone]). BLAYNE attempted to contact the patient with that number. The patient did not answer and SW left him a voicemail.
== END 2019-12-30 13:45 | disposition home or self-care (01) | DRG 305 ==
LOC: COL.ER 19:48 → ICU 23:28 → MEDICAL 12-28 16:06
PROVIDERS: Emergency Medicine; Nurse Practitioner Family; ADMIT Internal Medicine
DX: I16.0 Hypertensive urgency (principal); N39.0 Urinary tract infection, site not specified; A54.9 Gonococcal infection, unspecified; I10 Essential (primary) hypertension; E78.5 Hyperlipidemia, unspecified; N40.0 Benign prostatic hyperplasia without lower urinary tract symptoms; M19.90 Unspecified osteoarthritis, unspecified site; R07.89 Other chest pain; E87.6 Hypokalemia; I27.20 Pulmonary hypertension, unspecified; E83.42 Hypomagnesemia; M10.9 Gout, unspecified; Z90.49 Acquired absence of other specified parts of digestive tract; Z87.891 Personal history of nicotine dependence
CPT/HCPCS: 99232-AI; 99239; G0378; J0360; J0696; J1650; J2270; J3010; J7030; J7050; Q9967

== ENCOUNTER → 2020-02-01 | Outpatient (CLI) | payer SELFPAY ==
[~2020-02-01] MED LIST changes: +ALDACTONE 25MG25 M1 PO; +CARDIZEM CD 18180 MG PO
[2020-02-01 09:28] LABS: BASO % 0.2 % (0.0-2.0); EOS # 0.2 (0.0-0.7); EOS % 2.5 % (0-4.0); GRAN # 3.6 (1.4-6.5); GRAN % 58.8 % (42.2-75.2); HEMATOCRIT 41.9 % (42.0-52.0); HEMOGLOBIN 14.1 g/dl (13.5-18.0); LYMPH # 1.9 (1.2-3.4); LYMPH % 30.5 % (20.0-51.0); MEAN CELL VOLUME 86 fl (80.0-100.0); MEAN CORPUSCULAR HEMOGLOBIN 29 pg (27.0-31.0); MEAN CORPUSCULAR HGB CONC 34 g/dl (33.0-37.0); MEAN PLATELET VOLUME 9.6 fl (7.4-10.4); MONO # 0.5 (0.1-0.6); MONO % 7.7 % (1.7-9.3); PLATELET COUNT 272 K/mm3 (130-400); REDCELL DISTRIBUTION WIDTH-CV 12.1 % (11.5-14.5)
[2020-02-01 09:37] LABS: ALBUMIN 4.2 gm/dL (3.5-5.0); BILIRUBIN,TOTAL 0.5 mg/dL (0.0-1.0); CALCIUM 9.7 mg/dL (8.4-10.2); CREATININE, serum 1.53 (0.66-1.25); POTASSIUM 4.2 mmol/L (3.4-5.0)
[2020-02-01 09:41] LABS: INR 1.2 (0.8-3.0); PROTHROMBIN TIME 13.1 SECONDS (9.7-12.8)
[2020-02-01 21:50] LABS: HEPATITIS B SURFACE ANTIBODY 2.8 (())
[2020-02-02 12:34] LABS: HEPATITIS AB (HAV) IGG INDEX 12.38 Index (<=1.00)
[2020-02-04 09:43] LABS: LIVER FIBROSIS APOLIPOPROTEIN 149 mg/dL (>=120)
[2020-02-05 09:06] LABS: LIVER FIBROSIS ALPHA 2 MACRO 259 mg/dL (())
== END ==
LOC: COL.RAD 08:29
PROVIDERS: Internal Medicine Gastroenterology
DX: B18.2 Chronic viral hepatitis C (principal); Z90.49 Acquired absence of other specified parts of digestive tract

== ENCOUNTER → 2020-02-19 | Outpatient (CLI) | payer OTHER | LOC: COL.RAD 10:01 | DX: Z02.71 Encounter for disability determination (principal); M50.31 Other cervical disc degeneration, high cervical region; M47.812 Spondylosis without myelopathy or radiculopathy, cervical region ==

== ENCOUNTER 2020-10-22 06:50 | Emergency (ER) | payer MEDICAID ==
[~2020-10-22] VITALS: Ht 175.3 cm; Wt 103.6 kg
[2020-10-22 06:57] VITALS: BP 165/99; TEMP 98.2
[2020-10-22 09:03] VITALS: PULSE 66
[2020-12-10] MEDS ORDERED: COZAAR 25MG25 MG/TAB PO (19:57)
[2020-12-10] MEDS ORDERED: NORVASC 10MG10 MG PO (19:58)
[2020-12-10] MEDS ORDERED: ASPIRIN 81M81 MG/TA2 PO (19:59)
[2020-12-13] MEDS ORDERED: HUMULIN 70/3100 U/M1 SQ (13:48)
[2020-12-13] MEDS ORDERED: HUMALOG PEN100 U/ML SQ (13:48)
[2020-12-19] MEDS ORDERED: HUMULIN 70/3100 U/M1 SQ (09:09)
[2020-12-19] MEDS ORDERED: HUMALOG PEN100 U/ML SQ ×2 (09:17→12:16)
[2020-12-19] MEDS ORDERED: BD ALCOHOL1 SWA TD (09:43)
[2020-12-19] MEDS ORDERED: GLUCOSE TEST ST1 DEV MC (09:43)
[2020-12-19] MEDS ORDERED: FREESTYLE PREC1 EAC5 MC (09:43)
[2020-12-19] MEDS ORDERED: LANCETS MC (09:43)
== END 2020-10-22 09:03 | disposition home or self-care (01) ==
LOC: COL.ER 06:50
DX: R07.81 Pleurodynia (principal); R05 Cough; I10 Essential (primary) hypertension; Z86.73 Personal history of transient ischemic attack (TIA), and cerebral infarction without residual deficits

== ENCOUNTER 2020-11-22 18:40 | Emergency (ER) | payer MEDICAID ==
[~2020-11-22] VITALS: Ht 175.3 cm; Wt 104.1 kg
[2020-11-22] MEDS ORDERED: CEPHALEXIN500 M1 PO (19:21)
[2020-11-22 19:33] VITALS: BP 142/91; PULSE 82; TEMP 97.9
[2020-12-10] MEDS ORDERED: COZAAR 25MG25 MG/TAB PO (19:57)
[2020-12-10] MEDS ORDERED: NORVASC 10MG10 MG PO (19:58)
[2020-12-10] MEDS ORDERED: ASPIRIN 81M81 MG/TA2 PO (19:59)
[2020-12-13] MEDS ORDERED: HUMULIN 70/3100 U/M1 SQ (13:48)
[2020-12-13] MEDS ORDERED: HUMALOG PEN100 U/ML SQ (13:48)
[2020-12-19] MEDS ORDERED: HUMULIN 70/3100 U/M1 SQ (09:09)
[2020-12-19] MEDS ORDERED: HUMALOG PEN100 U/ML SQ ×2 (09:17→12:16)
[2020-12-19] MEDS ORDERED: FREESTYLE PREC1 EAC5 MC (09:43)
[2020-12-19] MEDS ORDERED: GLUCOSE TEST ST1 DEV MC (09:43)
[2020-12-19] MEDS ORDERED: BD ALCOHOL1 SWA TD (09:43)
[2020-12-19] MEDS ORDERED: LANCETS MC (09:43)
== END 2020-11-22 19:36 | disposition home or self-care (01) ==
LOC: COL.ER 18:40
DX: L73.9 Follicular disorder, unspecified (principal); I10 Essential (primary) hypertension; I25.2 Old myocardial infarction; Z79.899 Other long term (current) drug therapy

== ENCOUNTER 2020-12-07 07:41 | Emergency (ER) | payer MEDICAID ==
[~2020-12-07] VITALS: Ht 175.3 cm; Wt 104.1 kg
[2020-12-07 07:47] VITALS: BP 128/91; TEMP 97
[2020-12-07 08:24] VITALS: PULSE 82
[2020-12-10] MEDS ORDERED: COZAAR 25MG25 MG/TAB PO (19:57)
[2020-12-10] MEDS ORDERED: NORVASC 10MG10 MG PO (19:58)
[2020-12-10] MEDS ORDERED: ASPIRIN 81M81 MG/TA2 PO (19:59)
[2020-12-13] MEDS ORDERED: HUMALOG PEN100 U/ML SQ (13:48)
[2020-12-13] MEDS ORDERED: HUMULIN 70/3100 U/M1 SQ (13:48)
[2020-12-19] MEDS ORDERED: HUMULIN 70/3100 U/M1 SQ (09:09)
[2020-12-19] MEDS ORDERED: HUMALOG PEN100 U/ML SQ ×2 (09:17→12:16)
[2020-12-19] MEDS ORDERED: BD ALCOHOL1 SWA TD (09:43)
[2020-12-19] MEDS ORDERED: LANCETS MC (09:43)
[2020-12-19] MEDS ORDERED: FREESTYLE PREC1 EAC5 MC (09:43)
[2020-12-19] MEDS ORDERED: GLUCOSE TEST ST1 DEV MC (09:43)
== END 2020-12-07 08:24 | disposition home or self-care (01) ==
LOC: COL.ER 07:41
DX: J02.9 Acute pharyngitis, unspecified (principal); I10 Essential (primary) hypertension; Z23 Encounter for immunization; Z79.2 Long term (current) use of antibiotics; Z79.899 Other long term (current) drug therapy

== ENCOUNTER 2021-01-08 11:35 | Inpatient (IN) | payer MEDICAID ==
[~2021-01-08] VITALS: Ht 175.3 cm; Wt 90.7 kg
[2021-01-08] VITALS (234 sets, daily range): BP systolic 85–145; BP diastolic 55–99; PULSE 80–85; TEMP 98.2; O2SAT 83–100
[~2021-01-08 11:35] MED LIST changes: +ASPIRIN 81M81 MG/TA2 PO; +BD ALCOHOL1 SWA TD; +COZAAR 25MG25 MG/TAB PO; +FREESTYLE PREC1 EAC5 MC; +GLUCOSE TEST ST1 DEV MC; +HUMALOG PEN100 U/ML SQ; +HUMULIN 70/3100 U/M1 SQ; +LANCETS MC
[2021-01-08 12:25] LABS: BASO % 0.4 % (0.0-2.0); EOS # 0.1 (0.0-0.7); EOS % 1.8 % (0-4.0); GRAN # 4.1 (1.4-6.5); GRAN % 56.9 % (42.2-75.2); HEMOGLOBIN 14.6 g/dl (13.5-18.0); LYMPH # 2.3 (1.2-3.4); LYMPH % 31.9 % (20.0-51.0); MEAN CELL VOLUME 87 fl (80.0-100.0); MEAN CORPUSCULAR HEMOGLOBIN 29 pg (27.0-31.0); MEAN CORPUSCULAR HGB CONC 33 g/dl (33.0-37.0); MEAN PLATELET VOLUME 10.9 fl (7.4-10.4); MONO # 0.6 (0.1-0.6); MONO % 8.4 % (1.7-9.3); PLATELET COUNT 296 K/mm3 (130-400); RED BLOOD COUNT 5.07 M/mm3 (4.20-5.60); REDCELL DISTRIBUTION WIDTH-CV 12.9 % (11.5-14.5)
[2021-01-08 12:38] LABS: ALANINE AMINOTRANSFERASE 16 U/L (4-49); ALBUMIN 4.8 gm/dL (3.5-5.0); ALKALINE PHOSPHATASE 110 U/L (50-136); ANION GAP 29 mmol/L (7-16); AST,SGOT 24 U/L (15-37); BILIRUBIN,TOTAL 0.7 mg/dL (0.0-1.0); BLOOD UREA NITROGEN 36 mg/dL (9-20); CALCIUM 9.8 mg/dL (8.4-10.2); CARBON DIOXIDE 16 mmol/L (22-30); CHLORIDE 95 mmol/L (98-107); CREATININE, serum 1.49 (0.66-1.25); LIPASE 133 U/L (23-300); MAGNESIUM 2.1 mg/dL (1.6-2.3); POTASSIUM 3.5 mmol/L (3.4-5.0); SODIUM 139 mmol/L (137-145)
[2021-01-08 12:49] LABS: C-REACTIVE PROTEIN < 0.5 mg/dL (0.0-0.9); GLUCOSE 597 mg/dL (74-106)
[2021-01-08 13:59] LABS: COLLECTION METHOD CLEAN CATCH
[2021-01-08 14:04] LABS: PH 5 (5-8); SQUAMOUS EPITHELIAL None Seen /hpf; URINE APPEARANCE Clear; URINE BACTERIA None Seen /hpf; URINE BILIRUBIN Negative (NEGATIVE); URINE BLOOD Negative (NEGATIVE); URINE COLOR Straw; URINE GLUCOSE 3+ (NEGATIVE); URINE KETONE 2+ (NEGATIVE); URINE LEUKOCYTE ESTERASE Negative (NEGATIVE); URINE NITRATE Negative (NEGATIVE); URINE PROTEIN(semi-quant) 1+ (NEGATIVE); URINE RBC 0-2 /hpf; URINE UROBILINOGEN Negative (NEGATIVE)
[2021-01-08 16:50] LABS: CALCIUM 8.7 mg/dL (8.4-10.2); CREATININE, serum 1.24 (0.66-1.25); POTASSIUM 3.6 mmol/L (3.4-5.0)
--- NOTE | 2021-01-08 17:42 | NUR ---
PT states he does not know what medications he takes or when he last took any medications. PT states no one has a list for him.
--- NOTE | 2021-01-08 19:21 | NUR ---
Report given to JASON Go.
--- NOTE | 2021-01-08 20:27 | NUR ---
QUIET PATIENT SPEAK FEW WORDS/ DENIES PAIN/ ADMITS TO NAUSEA NO VOMITING/ REQUESTS ICE WATER/ COOPERATES WITH STAFF
[2021-01-08 20:31] LABS: CALCIUM 8.7 mg/dL (8.4-10.2); CREATININE, serum 1.22 (0.66-1.25); POTASSIUM 3.2 mmol/L (3.4-5.0)
[2021-01-09] VITALS (721 sets, daily range): BP systolic 101–133; BP diastolic 62–95; PULSE 72–90; TEMP 97.8–98.7; O2SAT 50–100
--- NOTE | 2021-01-09 02:37 | NUR ---
PATIENT EATS SANDWICH / APPLE SAUCE SUGAR FREE/ DENIES DISCOMFORT
[2021-01-09 05:24] LABS: BASO % 0.5 % (0.0-2.0); EOS # 0.2 (0.0-0.7); EOS % 3.5 % (0-4.0); GRAN # 2.6 (1.4-6.5); GRAN % 46.6 % (42.2-75.2); LYMPH # 2.2 (1.2-3.4); LYMPH % 38.4 % (20.0-51.0); MEAN CELL VOLUME 86 fl (80.0-100.0); MEAN CORPUSCULAR HGB CONC 34 g/dl (33.0-37.0); MEAN PLATELET VOLUME 10.9 fl (7.4-10.4); MONO # 0.6 (0.1-0.6); MONO % 10.6 % (1.7-9.3); PLATELET COUNT 251 K/mm3 (130-400); RED BLOOD COUNT 4.08 M/mm3 (4.20-5.60); REDCELL DISTRIBUTION WIDTH-CV 12.9 % (11.5-14.5)
[2021-01-09 05:25] LABS: HEMATOCRIT 35.1 % (42.0-52.0); HEMOGLOBIN 11.9 g/dl (13.5-18.0); MEAN CORPUSCULAR HEMOGLOBIN 29 pg (27.0-31.0)
[2021-01-09 05:27] LABS: ALBUMIN 3.5 gm/dL (3.5-5.0); CALCIUM 8.5 mg/dL (8.4-10.2); CREATININE, serum 1.62 (0.66-1.25); POTASSIUM 3.5 mmol/L (3.4-5.0)
--- NOTE | 2021-01-09 09:55 | NUR ---
The patient is a readmission. Personnel Training Officer reviewed the patient's chart. The patient's PCP is at the [facility]. SW contacted Rani at the [facility]. The patient's last appointment was on November 07, 2020. The next available appointment is January 21 at 1400. SW set up that appointment for the patient and put him on the wait list to have an appointment before if someone cancels. BLAYNE collaborated the above information with the patient's nurse.
--- NOTE | 2021-01-09 14:37 | NUR ---
Armature Bander attended clinical rounds with the team. The patient is a readmission. The patient informed Hospitalist that he was having trouble administering his insulin for his diabetes, stated that his needles were bending and he just gave up and stopped. The patient inquired about taking PO meds for diabetes, per Hospitalist PO meds for diabetes is not an option. The patient is self-pay. Last admission, Magalisamia Wetzel (not longer employed with [employer] completed application with the patient). Amanda with [employer] reports the patient has not provided bank statements for the Medicaid application. After rounds, SW met with the patient to complete intake. The patient lives alone in [place]. The patient has a walker and is independent with ADLs. The patient receives medical care at the [facility] and medications at [facility]. The patient has advanced directives in the EMR and designate his daughter Juana #[phone]. The patient plans to discharge to Juana's house for a few days post discharge then transition home. BLAYNE contacted the Juana to discuss the discharge plan. She was agreeable to the patient discharging to her house for a few days post discharge. SW discussed the Medicaid application with Juana and needing the bank statements. Juana will try to get the bank statements. Last admission the patient was discharged with OP PT/OT. Juana was interested in the patient continuing OP PT/OT. BLAYNE contacted [facility] where the patient was set up they were agreeable to making an appointment for the patient on Wednesday01/17/21 at 12:45 PM. *Discharge disposition at this time: Home with his daughter for a few days post discharge then transition home. OP PT/OT at [facility].
--- NOTE | 2021-01-09 15:00 | NUR ---
First visit from the certified nurses aide. No needs right now.
[2021-01-09 18:49] LABS: CALCIUM 8.5 mg/dL (8.4-10.2); CREATININE, serum 1.43 (0.66-1.25); POTASSIUM 3.6 mmol/L (3.4-5.0)
[2021-01-09 19:07] LABS: PHOSPHOROUS 1.4 mg/dL (2.5-4.5)
--- NOTE | 2021-01-09 20:40 | NUR ---
Assessment complete and charted. Patient having difficulty with bowel movements. Patient given PRN miralax. Denies other needs at this time. Call light in reach.
[2021-01-10] VITALS (358 sets, daily range): BP systolic 113–164; BP diastolic 66–115; PULSE 75–97; TEMP 97.6–99; O2SAT 88–100
--- NOTE | 2021-01-10 00:15 | NUR ---
Assessment complete and charted. Denies needs. Call light in reach.
--- NOTE | 2021-01-10 04:06 | NUR ---
Assessment complete and charted. Denies needs. Call light in reach.
[2021-01-10 05:02] LABS: BASO % 0.2 % (0.0-2.0); EOS # 0.1 (0.0-0.7); EOS % 2.4 % (0-4.0); GRAN # 1.9 (1.4-6.5); GRAN % 40.2 % (42.2-75.2); HEMOGLOBIN 12.2 g/dl (13.5-18.0); LYMPH # 2.2 (1.2-3.4); LYMPH % 47.4 % (20.0-51.0); MEAN CELL VOLUME 85 fl (80.0-100.0); MEAN CORPUSCULAR HEMOGLOBIN 29 pg (27.0-31.0); MEAN CORPUSCULAR HGB CONC 34 g/dl (33.0-37.0); MEAN PLATELET VOLUME 10.8 fl (7.4-10.4); MONO # 0.5 (0.1-0.6); MONO % 9.6 % (1.7-9.3); RED BLOOD COUNT 4.24 M/mm3 (4.20-5.60); REDCELL DISTRIBUTION WIDTH-CV 12.7 % (11.5-14.5)
[2021-01-10 05:20] LABS: PLATELET COUNT 142 K/mm3 (130-400)
[2021-01-10 05:30] LABS: CALCIUM 8.3 mg/dL (8.4-10.2); CREATININE, serum 1.06 (0.66-1.25); POTASSIUM 3.5 mmol/L (3.4-5.0)
[2021-01-10 05:38] LABS: PHOSPHOROUS 3.6 mg/dL (2.5-4.5)
--- NOTE | 2021-01-10 06:45 | NUR ---
BEDSIDE REPORT RECIEVED BY LOU GOMEZ. ALL QUESTIONS ANSWERED.
--- NOTE | 2021-01-10 07:22 | NUR ---
Patient had uneventful night. Resting in bed this AM. Report given to JSAON Mosquera
--- NOTE | 2021-01-10 08:00 | NUR ---
PATIENT FOUND AWAKE ALERT IN BED. DENIES PAIN OR NAUSEA. BLOOD SUGAR TESTED. IV INFUSING INTO LEFT HAND WITHOUT DIFFICULTY. VITAL SIGNS STABLE. HEART SOUNDS REGULAR, LUNG SOUNDS CLEAR, DIMINISHED IN BILATERAL BASES, BOWEL SOUNDS AUDIBLE. POTASSIUM 3.5 PROTOCOL ORDERS PLACED. PATIENT IS SITTING UP ON SIDE OF BED EATING BREAKFAST. CALL KELLEY WITHIN REACH, WILL MONITOR.
--- NOTE | 2021-01-10 16:53 | NUR ---
HOSPITALIST MADE AWARE OF BP OF 164/115. NO NEW TELEPHONE ORDERS AT THIS TIME.
--- NOTE | 2021-01-10 20:39 | NUR ---
Assessment complete and charted. Patient denies needs at this time. Family recently left from visitation this evening. Call light in reach.
[2021-01-11] VITALS (12 sets, daily range): BP systolic 121–157; BP diastolic 81–99; PULSE 78–94; TEMP 97.5–99.1; O2SAT 59–99
--- NOTE | 2021-01-11 05:47 | NUR ---
Patient had uneventful night. Potassium 2.9 this AM. Will replace. Denies other needs. Call light in reach.
--- NOTE | 2021-01-11 07:18 | NUR ---
Report given to JASON Ta
--- NOTE | 2021-01-11 07:45 | NUR ---
Patient awake and resting in bed; alert and oriented. Cooperative with cares. Asking about breakfast. Ordered and awaiting dietary at this time. Denies any other needs or concerns at this time; will continue to monitor.
--- NOTE | 2021-01-11 11:04 | NUR ---
Patient told hospitalist that he was having some shortness of breath and chest pressure. Entered room to assess patient. When patient was asked if he was currently having these symptoms patient just stared at nurse and did not respond. Nurse asked several more times before patient stated he was having a "bad day" and didn't want to talk. This nurse again stated that if pt reports chest pain we need to investigate to rule out cardiac concerns, such as an NV patient stated "I'm not having a heart attack". Patient stated I want to sit on the toilet. Patient stated pain was on the right side and has occurred occasionlly at home. Suspects it's do to "medication" but unable to specify which medication or why. Assisted patient up to the toilet to see if these relieves the chest pressure if due to gas pains. Will continue to monitor. RT notified to obtain EKG.
--- NOTE | 2021-01-11 14:19 | NUR ---
Reports that after 3 nitro the chest pain was slightly reduced but still there. Denies any offer for other medications for pain relief. Currently speaking on the phone and in no distress. Patient states that feels pain might be musculoskeletal. Will continue to monitor. Troponin negative.
--- NOTE | 2021-01-11 14:52 | NUR ---
Followed-up with Hospitalist regarding plan of care. Will obtain follow-up troponin at 1600 and EKG during this time. Will adjust insulin sliding scale to high dose.
--- NOTE | 2021-01-11 14:57 | NUR ---
Called report on patient to JASON Palmer
--- NOTE | 2021-01-11 15:05 | NUR ---
Transfered from unit via wheelchair with JASON Pickett . Patient alert and oriented and in no distress upon transfer.
--- NOTE | 2021-01-11 15:30 | NUR ---
Patient transferred to floor from ICU via wheel chair. He is alert and oriented. Denies nausea. Oriented patient to room. He stated having some epigastric pain. He called it gas but it sounds more like heartburn. No other changes at this time. Call light within reach.
--- NOTE | 2021-01-11 15:30 | NUR ---
Patient has been transferred to the floor from ICU. He is alert and oriented. Attempted to go gael his home medications with him but he is not able to tell this nurse the medications or doses. Asked if someone could check his medications and bring a list, he stated he did not have anyone to do so. Patient is up walking in the room. Denies pain and nausea at this time. Oriented to room. No other changes at this time, call light within reach.
[2021-01-11 16:11] LABS: POTASSIUM 4.2 mmol/L (3.4-5.0)
[2021-01-11 16:29] LABS: TROPONIN-I < 0.012 ng/mL (0.000-0.035)
--- NOTE | 2021-01-11 19:21 | NUR ---
Awake, alert, oriented x 3, verbal and talkative, pleasant, assessment completed at this time, denies chest pain/pressure, sitting up at bedside, denies pain, no s/s of hypo/hyper glycemia, updated on plan of care- verbalized understanding.
[2021-01-12 00:52] VITALS: BP 137/80; PULSE 90; TEMP 99.3
[2021-01-12 04:38] VITALS: BP 128/83; PULSE 79; TEMP 98.7
[2021-01-12 06:52] LABS: BASO % 0.4 % (0.0-2.0); EOS # 0.1 (0.0-0.7); EOS % 3.1 % (0-4.0); GRAN # 1.6 (1.4-6.5); GRAN % 35.1 % (42.2-75.2); HEMOGLOBIN 11.5 g/dl (13.5-18.0); LYMPH # 2.2 (1.2-3.4); LYMPH % 47.5 % (20.0-51.0); MEAN CELL VOLUME 87 fl (80.0-100.0); MEAN CORPUSCULAR HEMOGLOBIN 28 pg (27.0-31.0); MEAN CORPUSCULAR HGB CONC 33 g/dl (33.0-37.0); MEAN PLATELET VOLUME 10.8 fl (7.4-10.4); MONO # 0.6 (0.1-0.6); MONO % 13.7 % (1.7-9.3); PLATELET COUNT 220 K/mm3 (130-400); RED BLOOD COUNT 4.06 M/mm3 (4.20-5.60); REDCELL DISTRIBUTION WIDTH-CV 12.2 % (11.5-14.5)
[2021-01-12 07:00] LABS: CALCIUM 8.6 mg/dL (8.4-10.2); CREATININE, serum 0.92 (0.66-1.25)
[2021-01-12 07:03] LABS: POTASSIUM 2.9 mmol/L (3.4-5.0)
[2021-01-12 07:19] LABS: HEMATOCRIT 35.1 % (42.0-52.0)
[2021-01-12 08:00] VITALS: BP 116/72; PULSE 92; TEMP 99.1
[2021-01-12] MEDS ORDERED: HUMULIN 70/3100 U/M1 SQ ×3 (10:30→12:49)
[2021-01-12 11:46] VITALS: BP 144/95; PULSE 96; TEMP 98.8
--- NOTE | 2021-01-12 15:00 | NUR ---
Patient is discharging home. Discharge instructions discussed with patient. No questions verbaized. INT discontinued. Patient discussed having a hard time getting the needle into his insulin at home. Discussed asking for the pens instead and seeing if that will help. He stated the needles bend when he tries to stab the vial. Explained that he has to aim for the center and options to help him steady his hands. Discussed his diet and how to monitor his intake. No questions verbalized. Copies of discharge instructions sent with patient. Patient walked out via wheel chair by this nurse. All belongings sent with patient.
== END 2021-01-12 15:10 | disposition home or self-care (01) | DRG 638 ==
LOC: COL.ER 11:35 → ICU 16:54 → SURG 01-11 15:19
PROVIDERS: Emergency Medicine; Nurse Practitioner Family; Student in an Organized Health Care Education/Training Program; ADMIT Emergency Medicine
DX: E11.10 Type 2 diabetes mellitus with ketoacidosis without coma (principal); N17.9 Acute kidney failure, unspecified; E11.65 Type 2 diabetes mellitus with hyperglycemia; I10 Essential (primary) hypertension; R07.9 Chest pain, unspecified; E87.6 Hypokalemia; I16.0 Hypertensive urgency; E83.42 Hypomagnesemia; Z79.82 Long term (current) use of aspirin; Z90.49 Acquired absence of other specified parts of digestive tract; N40.0 Benign prostatic hyperplasia without lower urinary tract symptoms; Z86.73 Personal history of transient ischemic attack (TIA), and cerebral infarction without residual deficits
CPT/HCPCS: 99223-AI; 99233-AI; 99239; C9113; J0360; J1650; J1815; J2405; J2550; J3475; J3480; J7030; J7050; J7120

== ENCOUNTER 2021-01-17 12:45 | Outpatient (RCR) | payer MEDICAID | END 2021-02-21 15:06 | disposition home or self-care (01) | LOC: MKS.ESL.PT 12:45 | DX: E11.9 Type 2 diabetes mellitus without complications (principal); Z79.4 Long term (current) use of insulin ==

== ENCOUNTER 2021-05-29 10:57 | Emergency (ER) | payer MEDICAID ==
[~2021-05-29] VITALS: Ht 175.3 cm; Wt 99.1 kg
[2021-05-29 11:02] VITALS: BP 161/104; PULSE 77; TEMP 98.4
[2021-05-29] MEDS ORDERED: CEPHALEXIN500 M1 PO (11:35)
== END 2021-05-29 11:44 | disposition home or self-care (01) ==
LOC: COL.ER 10:57
DX: L03.315 Cellulitis of perineum (principal); E11.9 Type 2 diabetes mellitus without complications; I10 Essential (primary) hypertension; I25.2 Old myocardial infarction; Z86.73 Personal history of transient ischemic attack (TIA), and cerebral infarction without residual deficits; Z79.4 Long term (current) use of insulin; Z79.899 Other long term (current) drug therapy

== ENCOUNTER 2021-07-11 11:52 | Inpatient (IN) | payer MEDICAID ==
[2021-07-11] VITALS (143 sets, daily range): BP systolic 149–157; BP diastolic 98–102; PULSE 60–61; TEMP 97.9–98.9; O2SAT 91–100
[~2021-07-11] VITALS: Ht 175.3 cm; Wt 97.2 kg
[2021-07-11 15:15] LABS: BASO % 0.4 % (0.0-2.0); EOS # 0.1 K/mm3 (0.0-0.7); EOS % 1.4 % (0-4.0); GRAN # 2.5 K/mm3 (1.4-6.5); GRAN % 52.6 % (42.2-75.2); HEMATOCRIT 39.7 % (42.0-52.0); LYMPH # 1.7 K/mm3 (1.2-3.4); LYMPH % 34.8 % (20.0-51.0); MEAN CELL VOLUME 79 fl (80.0-100.0); MEAN CORPUSCULAR HEMOGLOBIN 28 pg (27.0-31.0); MEAN CORPUSCULAR HGB CONC 35 g/dl (33.0-37.0); MEAN PLATELET VOLUME 10.9 fl (7.4-10.4); MONO # 0.5 K/mm3 (0.1-0.6); MONO % 10.4 % (1.7-9.3); PLATELET COUNT 311 K/mm3 (130-400); RED BLOOD COUNT 5.02 M/mm3 (4.20-5.60); REDCELL DISTRIBUTION WIDTH-CV 12.2 % (11.5-14.5)
[2021-07-11 15:30] LABS: COLLECTION METHOD CLEAN CATCH
[2021-07-11 15:37] LABS: ACETONE,SERUM NEGATIVE
[2021-07-11 15:40] LABS: ALANINE AMINOTRANSFERASE 12 U/L (0-55); ALKALINE PHOSPHATASE 81 U/L (40-150); ANION GAP 15 mmol/L (7-16); AST,SGOT 15 U/L (5-34); BILIRUBIN,TOTAL 0.6 mg/dL (0.2-1.2); BLOOD UREA NITROGEN 38 mg/dL (8-26); CALCIUM 9.4 mg/dL (8.4-10.2); CARBON DIOXIDE 24 mmol/L (23-31); CHLORIDE 96 mmol/L (98-107); CREATININE, serum 1.93 mg/dL (0.72-1.25); LIPASE 44 U/L (8-78); POTASSIUM 3.4 mmol/L (3.5-4.5); SODIUM 135 mmol/L (136-145); TOTAL PROTEIN 7.7 gm/dL (6.2-8.1)
[2021-07-11 15:47] LABS: GLUCOSE 704 mg/dL (70-99)
[2021-07-11 15:53] LABS: PH 5 (5-8); SQUAMOUS EPITHELIAL None Seen /hpf (0-10); URINE APPEARANCE Clear (CLEAR/HAZY); URINE BACTERIA None Seen (NONE SEEN); URINE BILIRUBIN Negative (NEGATIVE); URINE BLOOD 1+ (NEGATIVE); URINE COLOR Straw (YELLOW); URINE GLUCOSE 3+ (NEGATIVE); URINE KETONE Negative (NEGATIVE); URINE LEUKOCYTE ESTERASE Negative (NEGATIVE); URINE NITRATE Negative (NEGATIVE); URINE PROTEIN(semi-quant) 1+ (NEGATIVE); URINE RBC 0-2 /hpf (0-2); URINE UROBILINOGEN Negative (NEGATIVE)
[2021-07-11 17:10] LABS: MAGNESIUM 2.2 mg/dL (1.6-2.6); PHOSPHOROUS 3.3 mg/dL (2.3-4.7)
--- NOTE | 2021-07-11 20:28 | NUR ---
PT DOES NOT KNOW MED LIST. THIS RN ASKED IF DAUGHTER KNEW HOME MEDICATIONS AND HE STATED SHE DOES NOT. PT STATES [facility] KNOW.
[2021-07-11 21:23] LABS: CALCIUM 8.7 mg/dL (8.4-10.2); CREATININE, serum 1.34 mg/dL (0.72-1.25)
[2021-07-11 21:34] LABS: POTASSIUM 2.9 mmol/L (3.5-4.5)
[2021-07-12] VITALS (367 sets, daily range): BP systolic 120–167; BP diastolic 77–101; PULSE 66–76; TEMP 97.9–98.9; O2SAT 91–100
[2021-07-12 05:36] LABS: BASO % 0.9 % (0.0-2.0); EOS # 0.1 K/mm3 (0.0-0.7); EOS % 1.6 % (0-4.0); GRAN # 1.9 K/mm3 (1.4-6.5); GRAN % 44.4 % (42.2-75.2); HEMATOCRIT 38.5 % (42.0-52.0); HEMOGLOBIN 13.4 g/dl (13.5-18.0); LYMPH # 1.8 K/mm3 (1.2-3.4); MEAN CELL VOLUME 80 fl (80.0-100.0); MEAN CORPUSCULAR HEMOGLOBIN 28 pg (27.0-31.0); MEAN CORPUSCULAR HGB CONC 35 g/dl (33.0-37.0); MEAN PLATELET VOLUME 10.5 fl (7.4-10.4); MONO # 0.5 K/mm3 (0.1-0.6); MONO % 10.6 % (1.7-9.3); PLATELET COUNT 288 K/mm3 (130-400); RED BLOOD COUNT 4.82 M/mm3 (4.20-5.60); REDCELL DISTRIBUTION WIDTH-CV 12.4 % (11.5-14.5)
[2021-07-12 05:52] LABS: CALCIUM 8.6 mg/dL (8.4-10.2); CREATININE, serum 1.07 mg/dL (0.72-1.25); POTASSIUM 3.2 mmol/L (3.5-4.5)
--- NOTE | 2021-07-12 06:39 | NUR ---
PT RESTING IN BED. INSULIN GTT TURNED OFF AT 2200. POTASSIUM REPLACED PER PROTOCOL. HYPERTENSIVE OVERNOC, ALBERT OSBORNE NOTIFIED OF ELEVATED PRESSURES AT 2145, PRN HYDRALAZINE ORDERDED. GIVEN DOCUMENTED IN OCT. DIASTOLIC STILL >100. NOTIFIED ALBERT OSBORNE. ORDER PLACED FOR PRN LABETALOL. GIVEN DOCUMENTED. DIASTOLIC CONTINUES TO BE ELEVATED >100 AND PT STATES "THATS HOW IT USUALLY IS AT HOME." NOTIFIED MELI OSBORNE AND STATES TO NOT BLADIMIR IT. WHILE SLEEPING, DIASTOLIC BP <100. CALL LIGHT WITHIN REACH.
--- NOTE | 2021-07-12 12:57 | NUR ---
Chaplain philip and offered support with patient.
[2021-07-13 00:48] VITALS: BP 146/99; PULSE 79; TEMP 98.4
[2021-07-13 03:46] VITALS: BP 157/86; PULSE 70; TEMP 98.2
--- NOTE | 2021-07-13 05:44 | NUR ---
PT HAD UNEVENTFUL NIGHT THIS SHIFT. BS REMAIN ELEVATED. INSULIN ADMINISTERED ORDERED. ALL NEEDS MET THIS NIGHT. CALL LIGHT WITHIN REACH.
[2021-07-13 07:49] VITALS: BP 150/85; PULSE 76; TEMP 98.1
[2021-07-13 08:55] LABS: ALBUMIN 3.3 gm/dL (3.4-4.8); BILIRUBIN,TOTAL 0.6 mg/dL (0.2-1.2); CALCIUM 8.7 mg/dL (8.4-10.2); CREATININE, serum 1.22 mg/dL (0.72-1.25); POTASSIUM 3.1 mmol/L (3.5-4.5); TOTAL PROTEIN 6.6 gm/dL (6.2-8.1)
--- NOTE | 2021-07-13 11:16 | NUR ---
PT ASSESSED. NO COMPLAINTS OF PAIN OR DYPNEA. NO SIGNS OR SYMPTOMS OF DISTRESS. NO CONCERNS AT THIS TIME. CALL LIGHT WITHIN REACH
[2021-07-13 13:05] VITALS: BP 139/95; PULSE 86
[2021-07-13 17:52] VITALS: BP 153/95; PULSE 71; TEMP 97.8
[2021-07-13 19:49] VITALS: BP 162/97; PULSE 87; TEMP 98.1
--- NOTE | 2021-07-13 22:08 | NUR ---
Patient assessed around 1954. Alert and oriented x 4, and able to make needs known. BP elevated, 160s/90s. Updated ALAN Menezes. New order to resume Coreg BID, and give one dose now. Given at 2124. Patient voices no further questions, needs, or concerns at this time. Resting in bed with call light within reach.
[2021-07-14 02:16] VITALS: BP 103/64; PULSE 70; TEMP 97.9
[2021-07-14 05:00] VITALS: BP 158/87; PULSE 100; TEMP 97.5
--- NOTE | 2021-07-14 05:56 | NUR ---
Patient has denied pain and discomfort this shift. Voices no questions, needs, or concerns at this time. Call light within reach.
[2021-07-14 07:50] LABS: BASO % 0.3 % (0.0-2.0); EOS # 0.1 K/mm3 (0.0-0.7); EOS % 2.1 % (0-4.0); GRAN # 1.3 K/mm3 (1.4-6.5); GRAN % 39.2 % (42.2-75.2); HEMATOCRIT 37.8 % (42.0-52.0); HEMOGLOBIN 13.2 g/dl (13.5-18.0); LYMPH # 1.5 K/mm3 (1.2-3.4); LYMPH % 44.2 % (20.0-51.0); MEAN CELL VOLUME 81 fl (80.0-100.0); MEAN CORPUSCULAR HEMOGLOBIN 28 pg (27.0-31.0); MEAN CORPUSCULAR HGB CONC 35 g/dl (33.0-37.0); MEAN PLATELET VOLUME 10.3 fl (7.4-10.4); MONO # 0.5 K/mm3 (0.1-0.6); MONO % 13.9 % (1.7-9.3); PLATELET COUNT 247 K/mm3 (130-400); RED BLOOD COUNT 4.68 M/mm3 (4.20-5.60); REDCELL DISTRIBUTION WIDTH-CV 12.4 % (11.5-14.5)
[2021-07-14 08:05] LABS: CALCIUM 8.6 mg/dL (8.4-10.2); CREATININE, serum 1.25 mg/dL (0.72-1.25)
[2021-07-14 08:19] VITALS: BP 137/90; PULSE 78; TEMP 98.2
--- NOTE | 2021-07-14 08:23 | NUR ---
PT FOUND WITH BREAKFAST FINISHED. INSULIN DOSED FROM FASTING BLOOD GLUCOSE THIS AM.
--- NOTE | 2021-07-14 08:45 | NUR ---
NOTIFIED LEE HORTON OF REPORT FROM FRONT MAKER LOCKSTITCH WITH PT RESPONSE TO BLOOD PRESSURE MEDICATIONS. HELD COREG TO AVOID SIGNIFICANT DECREASE IN BLOOD PRESSURE, NOTIFIED SOL OF CONCERNS. NO FURTHER ORDERS RECEIVED.
--- NOTE | 2021-07-14 09:37 | NUR ---
aircraft lay out worker met with patient to discuss discharge plan. Patient reports that he lives at home alone in [place]. Patient reports that he is independent with his activities of daily living and that he utilizes a walker to assist with ambulation. Patient reports that he doesn't utilize his walker like he should be. Patient reports that he has no oxygen needs at home. PCP is the [facility] and [facility] utilizes [facility] for medications. Reports that he only has a cost difficulty with his insulin. SW collaborated with the hospitalist and pharmacist to address the barriers to the patient getting his insulin. Per [facility] the patient has not refilled his insulin since January. Hospitalist and pharmacist working with the patient to address insulin types and what would work best for him. Patient does not need any diabetic supplies such as a glucometer/strips as he has these. Patient does have a DPOA-HC on file listing his daughter Juana ([phone]) Discharge plan: Home with diabeties education program.
[2021-07-14] MEDS ORDERED: GLUCOSE TEST ST1 DEV MC (09:46)
[2021-07-14] MEDS ORDERED: K-DUR 10 MEQ T10 MEQ PO (09:47)
[2021-07-14] MEDS ORDERED: NOVOLIN 70/30 710 ML SQ (09:49)
--- NOTE | 2021-07-14 10:40 | NUR ---
PT ALERT AND ORIENTED. PT INDEPENDENT IN ROOM. PT LUNGS CLEAR TO AUSCULTATION. S1,S2 AUSCULTATED. PT AHS ACTIVE BOWEL SOUNDS, SOFT, NON-TENDER. PT HAS 2+ PULSES IN ALL EXTREMITIES. PT CALL LIGHT WITHIN REACH. ABLE TO CALL FOR NEEDS.
[2021-07-14 11:44] VITALS: BP 139/95; PULSE 72; TEMP 98
[2021-07-14 13:47] VITALS: BP 147/87; PULSE 75; TEMP 97.5
--- NOTE | 2021-07-14 14:13 | NUR ---
PT DISCHARGING. HEALTH SUMMARY AND EDUCATION GIVEN TO BEST OF ABILITY. INT DISCONTINUED. PT AMBULATORY, ESCORTED BY [employer] EMPLOYEE. PT BELONGINGS WITH PT IN [place].
== END 2021-07-14 14:14 | disposition home or self-care (01) | DRG 638 ==
LOC: COL.ER 11:52 → ICU 17:01 → MEDICAL 07-12 16:35
PROVIDERS: Emergency Medicine; Physician Assistant; ADMIT Student in an Organized Health Care Education/Training Program
DX: E11.65 Type 2 diabetes mellitus with hyperglycemia (principal); N17.9 Acute kidney failure, unspecified; I10 Essential (primary) hypertension; Z86.73 Personal history of transient ischemic attack (TIA), and cerebral infarction without residual deficits; N40.0 Benign prostatic hyperplasia without lower urinary tract symptoms; Z90.49 Acquired absence of other specified parts of digestive tract; Z79.82 Long term (current) use of aspirin; E87.6 Hypokalemia
CPT/HCPCS: 99222-AI; 99232-AI; 99233-AI; 99239; J0360; J1644; J1815; J3480; J7030